=== PATIENT | male | born 1990 | race African-American/Black ===

== ENCOUNTER 2016-09-13 19:05 | Emergency (ER) | payer MEDICAID ==
[~2016-09-13] VITALS: Ht 177.8 cm; Wt 82.6 kg
[2016-09-13 19:20] VITALS: BP 128/78
== END 2016-09-14 02:18 | disposition left against medical advice (07) ==
LOC: ER 19:06
DX: R53.1 Weakness (principal); R19.7 Diarrhea, unspecified; Z53.21 Procedure and treatment not carried out due to patient leaving prior to being seen by health care provider

== ENCOUNTER 2016-09-14 14:40 | Emergency (ER) | payer MEDICAID ==
[~2016-09-14] VITALS: Ht 177.8 cm; Wt 82.6 kg
[2016-09-14] MEDS ORDERED: SODIUM CHLORIDE 0.9% 1,000 ML IV ONE (17:09)
[2016-09-14 17:47] LABS: Urine Bilirubin Negative (Negative); Urine Blood Negative /uL (Negative); Urine Glucose Normal (Normal); Urine Ketone Negative (Negative); Urine Nitrite Negative (Negative); Urine RBC <1 /hpf (0 - 3); Urine Urobilinogen Normal (Negative)
[2016-09-14 17:50] LABS: Urine Color Straw (Yellow)
[2016-09-14 17:53] LABS: Basophils # (auto) 0 uL; Basophils % (auto) 0.6 % (0.0-2.0); Eosinophils # (auto) 0.1 uL; Eosinophils % (auto) 1.3 % (0.0-7.0); Hematocrit 48.2 % (41.0-53.0); Hemoglobin 16.2 g/dL (13.5-17.5); Lymphocytes % (auto) 37.3 % (10.0-50.0); Mean Corpuscular Hemoglobin 30.1 pg (28.0-32.0); Mean Corpuscular Hgb Conc. 33.6 g/dL (32.0-36.0); Mean Corpuscular Volume 89.5 fL (80.0-100.0); Mean Platelet Volume 7.9 fL (7.4-10.4); Monocytes # (auto) 0.5 uL; Monocytes % (auto) 9.5 % (0.0-12.0); Neutrophils # (auto) 2.8 uL; Neutrophils % (auto) 51.3 % (37.0-80.0); Platelet Count (auto) 225 10^3/uL (140-450); Red Cell Distribution Width 13.4 % (11.6-16.0); White Blood Cell 5.4 10^3/uL (4.4-10.8)
[2016-09-14 18:30] VITALS: BP 149/90
[2016-09-14 18:38] LABS: Albumin 4.3 g/dL (3.4-5.0); BUN/Creatinine Ratio 12.4; Bilirubin, Total 0.5 mg/dL (0.2-1.0); Magnesium 2.5 mg/dL (1.6-2.6); Total Protein 7.7 g/dL (6.4-8.2)
== END 2016-09-14 19:30 | disposition home or self-care (01) ==
LOC: ER 14:40
DX: R53.1 Weakness (principal); F17.210 Nicotine dependence, cigarettes, uncomplicated
CPT/HCPCS: 36415; 80053; 81001; 83735; 85025; 94761; 96360; 99285; J7030

== ENCOUNTER 2018-03-30 10:42 | Emergency (ER) | payer MEDICAID ==
[~2018-03-30] VITALS: Ht 177.8 cm; Wt 83.9 kg
[2018-03-30 11:19] VITALS: BP 149/89
[2018-03-30] MEDS ORDERED: ACETAMINOPHEN 325 MG TAB PO ONE (11:30)
[2018-03-30] MEDS ORDERED: IBUPROFEN 800 MG TAB PO ONE (16:15)
== END 2018-03-30 16:44 | disposition home or self-care (01) ==
LOC: ER 10:42
DX: J40 Bronchitis, not specified as acute or chronic (principal); F17.210 Nicotine dependence, cigarettes, uncomplicated

== ENCOUNTER 2019-10-19 16:55 | Emergency (ER) | payer MEDICAID ==
[~2019-10-19] VITALS: Ht 177.8 cm; Wt 89.4 kg
[2019-10-19 17:15] VITALS: BP 135/72
== END 2019-10-19 20:25 | disposition left against medical advice (07) ==
LOC: ER 16:55
DX: R06.02 Shortness of breath (principal); R53.1 Weakness; Z53.21 Procedure and treatment not carried out due to patient leaving prior to being seen by health care provider

== ENCOUNTER 2020-12-27 07:53 | Emergency (ER) | payer MEDICAID ==
[~2020-12-27] VITALS: Ht 177.8 cm; Wt 78.9 kg
[2020-12-27 08:13] VITALS: BP 123/83
== END 2020-12-27 09:07 | disposition home or self-care (01) ==
LOC: ER 07:53
DX: J20.9 Acute bronchitis, unspecified (principal); F17.210 Nicotine dependence, cigarettes, uncomplicated; F41.9 Anxiety disorder, unspecified; Z86.16 Personal history of COVID-19
CPT/HCPCS: 71046

== ENCOUNTER 2021-01-05 09:47 | Emergency (ER) | payer MEDICAID ==
[~2021-01-05] VITALS: Ht 180.3 cm; Wt 79.4 kg
[2021-01-05 10:39] VITALS: BP 133/87
== END 2021-01-05 10:45 | disposition home or self-care (01) ==
LOC: ER 09:47
DX: F41.1 Generalized anxiety disorder (principal); R94.31 Abnormal electrocardiogram [ECG] [EKG]; F17.210 Nicotine dependence, cigarettes, uncomplicated; Z88.0 Allergy status to penicillin
CPT/HCPCS: 93005

== ENCOUNTER 2024-04-30 16:16 | Emergency (ER) | payer MEDICAID ==
[~2024-04-30] VITALS: Ht 180.3 cm; Wt 76.3 kg
--- NOTE | 2024-04-30 16:26 | ECG ---
[facility] Test Date: 2024-04-30 Test Time: 16:23:14 Pat Name: SOFIE SAEZ Department: er Room: Gender: M [employer]: amol : 1990 Requested By: SHANICE العلي Order Number: [id number] Reading MD: Yony Nayak Measurements Intervals [place] Rate: 70 P: 35 [place]: 151 QRS: 56 QRSD: 114 T: 60 QT: 366 QTc: 395 Interpretive Statements Sinus rhythm Incomplete right bundle branch block ST elevation suggests acute pericarditis Baseline wander in lead(s) V6 Electronically Signed On 05-04-2024 8:49:03 PST by Yony Nayak Please click the below link to view image of tracing.
--- NOTE | 2024-04-30 16:47 | DVH ---
EXAM: XR Chest, 1 View CLINICAL INDICATION: chest pain TECHNIQUE: Frontal view of the chest. COMPARISON: None FINDINGS: LUNGS AND PLEURAL SPACES: Unremarkable. No consolidation. No pneumothorax. HEART: Unremarkable. No cardiomegaly. MEDIASTINUM: Unremarkable. Normal mediastinal contour. BONES/JOINTS: Unremarkable. No acute fracture. OTHER FINDINGS: . . IMPRESSION: No acute cardiopulmonary process.
--- NOTE | 2024-04-30 16:58 | ED.PDOC ---
HPI Comments 33y M who presents to the ED for chief complaint of chest pain. Pt states he has been having chest pain for the past 4-5 days. Pt states the pain is located by the L side of his chest, rating the pain 3/10, sharp in nature, intermittent, non-radiating, with no associated exacerbating or relieving factors. Pt otherwise denies any associated shortness of breath, fever, cough, chills, or diaphoresis. Pt has only cardiac history of pericardiums from prior COVID infection but denies any past history. Pt otherwise denies any other symptoms at this time. Chief Complaint: Chest Pain Time Seen by MD: 16:55 Primary Care Provider: ? Reviewed Notes: Nurses Notes Allergies: Coded Allergies: Penicillins (Verified Allergy, Unknown, 01/05/21) Uncoded Allergies: PENICILLIN (Allergy, Unknown, 03/30/18) Information Source: Patient Mode of Arrival: Ambulatory Brought in by: self Past Medical History PAST MEDICAL HISTORY: Anxiety Surgical History: Denies all surgeries Family History Family History: Reviewed,noncontributory to illness Social History Smoker: Cigarettes Alcohol: Occasionally Drugs: Denies Drug Use Lives In: Home Constitutional: denies: chills, diaphoresis, fatigue, fever, malaise, sweats, w eakness, others EENTM: denies: blurred vision, double vision, ear bleeding, ear discharge, ear drainage, ear pain, ear ringing, eye pain, eye redness, hearing loss, mouth pain, mouth swelling, nasal discharge, nose bleeding, nose congestion, nose pain, photophobia, tearing, throat pain, throat swelling, voice changes, others Respiratory: denies: cough, hemoptysis, orthopnea, SOB at rest, shortness of breath, SOB with excertion, stridor, wheezing, others Cardiovascular: reports: chest pain; denies: dizzy spells, diaphoresis, Dyspnea on exertion, edema, irregular heart beat, left arm pain, lightheadedness, palpitations, PND, syncope, others Gastrointestinal: denies: abdomen distended, abdominal pain, blood streaked bowels, constipated, diarrhea, dysphagia, difficulty swallowing, hematemesis, melena, nausea, poor appetite, poor fluid intake, rectal bleeding, rectal pain, vomiting, others Genitourinary: denies: burning, dysuria, flank pain, frequency, hematuria, incontinence, penile discharge, penile sore, pain, testicle pain, testicle swelling, urgency, others Neurological: denies: dizziness, fainting, headache, left sided numbness, left sided weakness, numbness, paresthesia, pre-existing deficit, right sided numbness, right sided weakness, seizure, speech problems, tingling, tremors, weakness, others Musculoskeletal: denies: back pain, gout, joint pain, joint swelling, muscle pain, muscle stiffness, neck pain, others Integumetry: denies: bruises, change in color, change in hair/nails, dryness, laceration, lesions, lumps, rash, wounds, others Allergic/Immunocompromised: denies: Difficulty Healing, Frequent Infections, Hives, Itching, others Hematologic/Lymphatic: denies: anemia, blood clots, easy bleeding, easy bruising, swollen glands, others Endocrine: denies: excessive hunger, excessive sweating, excessive thirst, excessive urination, flushing, intolerance to cold, intolerance to heat, unexplained weight gain, unexplained weight loss, others Psychiatric: denies: anxiety, bipolar disorder, depression, hopeless, panic disorder, schizophrenia, sleepless, suicidal, others All Other Systems: Reviewed and Negative Physical Exam General Appearance: No Apparent Distress, Normal HEENT: Normal ENT Inspection, Pharynx Normal, TMs Normal Neck: Full Range of Motion, Non-Tender, Normal, Normal Inspection Respiratory: Chest Non-Tender, Lungs Clear, No Accessory Muscle Use, No Respi ratory Distress, Normal Breath Sounds Cardiovascular: No Edema, No JVD, No Murmur, No Gallop, Normal Peripheral Pulses, Regular Rate/Rhythm Breast Exam: Deferred Gastrointestinal: No Organomegaly, Non Tender, No Pulsatile Mass, Normal Bowel Sounds, Soft Genitalia: Deferred Pelvic: Deferred Rectal: Deferred Extremities: No calf tenderness, Normal capillary refill, Normal inspection, Normal range of motion, Non-tender, No pedal edema Musculoskeletal : Apperance: Normal Neurologic: Alert, ui designer II-XII nml as Tested, No Motor Deficits, Normal Affect, Normal Mood, No Sensory Deficits Cerebellar Function: Normal Reflexes: Normal Skin: Dry, Normal Color, Warm Lymphatic: No Adenopathy Was a procedure done? Was a procedure done?: No CP Differential Dx Differential Diagnosis: Angina, Anxiety / Panic Attack Differential Diagnosis: Chest Wall Pain, Costochondritis, Pericarditis X-Ray, Labs, Meds, VS Vital Signs Date Time Temp Pulse Resp B/P (MAP) Pulse Ox O2 Delivery O2 Flow Rate FiO2 04/30/24 17:40 98.5 75 16 142/74 (96) 95 98.5 04/30/24 17:09 68 04/30/24 16:23 70 04/30/24 16:18 98.5 68 16 130/81 (97) 96 Lab Test 04/30/24 17:45 04/30/24 16:42 04/30/24 16:26 Range/Units Troponin I High Sensitivity < 3 L < 3 L </=54 ng/L White Blood Count 5.2 4.4-10.8 10^3/uL Red Blood Count 5.23 4.5-5.90 10^6/uL Hemoglobin 15.8 13.5-17.5 g/dL Hematocrit 46.7 41.0-53.0 % Mean Corpuscular Volume 89.3 80.0-100.0 fL Mean Corpuscular Hemoglobin 30.2 28.0-32.0 pg Mean Corpuscular Hemoglobin Concent 33.9 32.0-36.0 g/dL Red Cell Distribution Width 13.2 11.8-14.3 % Platelet Count 201 140-450 10^3/uL Mean Platelet Volume 8.3 6.9-10.8 fL Neutrophils (%) (Auto) 37.7 37.0-80.0 % Lymphocytes (%) (Auto) 48.4 10.0-50.0 % Monocytes (%) (Auto) 8.6 0.0-12.0 % Eosinophils (%) (Auto) 4.2 0.0-7.0 % Basophils (%) (Auto) 1.1 0.0-2.0 % Neutrophils # (Auto) 2.0 1.6-8.6 10 ^3/uL Lymphocytes # (Auto) 2.5 0.4-5.4 10 ^3/uL Monocytes # (Auto) 0.4 0-1.3 10 ^3/uL Eosinophils # (Auto) 0.2 0-0.8 10 ^3/uL Basophils # (Auto) 0.1 0-0.2 10 ^3/uL Nucleated Red Blood Cells 0.2 % Sodium Level 140 136-145 mmol/L Potassium Level 4.3 3.5-5.1 mmol/L Chloride Level 103 98-107 mmol/L Carbon Dioxide Level 30 20-31 mmol/L Anion Gap 7 5-15 Blood Urea Nitrogen 13 9-23 mg/dL Creatinine 1.22 0.700-1.30 mg/dL Glomerular Filtration Rate Calc 80 >90 mL/min BUN/Creatinine Ratio 10.7 10.0-20.0 Serum Glucose 99 74-106 mg/dL Calcium Level 10.2 8.7-10.4 mg/dL Total Bilirubin 0.5 0.2-1.0 mg/dL Aspartate Amino Transferase (AST) 25 13-40 U/L Alanine Aminotransferase (ALT) 13 7-40 U/L Alkaline Phosphatase 66 46-116 U/L Total Protein 7.1 5.7-8.2 g/dL Albumin 4.9 H 3.2-4.8 g/dL Urine Color Yellow Yellow Urine Clarity Clear Clear Urine pH 6.5 5.0-9.0 Urine Specific Burns 1.029 1.001-1.035 Urine Protein Trace H Negative Urine Ketones Trace Negative Urine Blood Negative Negative /uL Urine Nitrite Negative Negative Urine Bilirubin Negative Negative Urine Urobilinogen 3 H Negative mg/dL Urine Leukocyte Esterase Negative Negative /uL Urine RBC 12 0 - 3 /hpf Urine Microscopic WBC 1 0-3 /HPF Urine Squamous Epithelial Cells None seen <5 /hpf Urine Bacteria Few H None Seen /hpf Urine Sperm Present None Seen /hpf Urine Glucose Normal Normal mg/dL [place] [id number] DIAGNOSTIC IMAGING Diagnostic Imaging Report : [id number] Signed PATIENT: SOFIE SAEZ ACCT: [id number] UNIT: [id number] : 1990 LOC: ER ROOM / BED: / AGE / SEX: 33 / M ADM STATUS: REG ER SERVICE [id number] ORDERING PHYSICIAN: SHANICE العلي MD PROCEDURE(s): CXR1 - CHEST XRAY 1 VIEW REASON: chest pain ORDER NUMBER(s): [id number], ACCESSION NUMBER(s): [id number] EXAM: XR Chest, 1 View CLINICAL INDICATION: chest pain TECHNIQUE: Frontal view of the chest. COMPARISON: None FINDINGS: LUNGS AND PLEURAL SPACES: Unremarkable. No consolidation. No pneumothorax. HEART: Unremarkable. No cardiomegaly. MEDIASTINUM: Unremarkable. Normal mediastinal contour. BONES/JOINTS: Unremarkable. No acute fracture. OTHER FINDINGS: . . IMPRESSION: No acute cardiopulmonary process. ATED BY: ANGELITO BAUMAN MD DICTATED DATE/TIME: 04/30/241644 SIGNED BY: ANGELITO BAUMAN MD SIGNED DATE/TIME: 04/30/241644 CC: Time of 1ST Reevaluation: 17:25 Reevaluation 1ST: Unchanged Time of 2ND Reevaluation: 18:36 Reevaluation 2ND: Improved Patient Education/Counseling: Diagnosis, Treatment Family Education/Counseling: No Family Present Departure 1 Departure Time of Disposition: 18:36 Impression: Primary Impression: Chest pain Disposition: 01 HOME / SELF CARE / HOMELESS Condition: Stable Discharged With: Self Critical Care Note Critical Care Time?: No Stability Stability form required: No Heart Score Heart Score: Heart Score Response (Comments) Value History Slightly Suspicious 0 EKG Normal 0 Age <45 0 Risk Factors No known risk factors 0 Troponin Normal limit 0 Total 0 I personally scribed for SHANICE العلي MD ([email or web address]) on 04/30/24 at 16:58. Electronically submitted by Jeyson FERNANDEZ). SHANICE العلي MD Apr 30, 2024 16:58
[2024-04-30 17:04] LABS: Basophils # (auto) 0.1 10 ^3/uL (0-0.2); Basophils % (auto) 1.1 % (0.0-2.0); Eosinophils # (auto) 0.2 10 ^3/uL (0-0.8); Eosinophils % (auto) 4.2 % (0.0-7.0); Hematocrit 46.7 % (41.0-53.0); Hemoglobin 15.8 g/dL (13.5-17.5); Lymphocytes # (auto) 2.5 10 ^3/uL (0.4-5.4); Lymphocytes % (auto) 48.4 % (10.0-50.0); Mean Corpuscular Hemoglobin 30.2 pg (28.0-32.0); Mean Corpuscular Hgb Conc. 33.9 g/dL (32.0-36.0); Mean Corpuscular Volume 89.3 fL (80.0-100.0); Monocytes # (auto) 0.4 10 ^3/uL (0-1.3); Monocytes % (auto) 8.6 % (0.0-12.0); Neutrophils % (auto) 37.7 % (37.0-80.0); Nucleated Red Blood Cells % 0.2 %; Platelet Count (auto) 201 10^3/uL (140-450); Red Blood Cells 5.23 10^6/uL (4.5-5.90); Red Cell Distribution Width 13.2 % (11.8-14.3); White Blood Cell 5.2 10^3/uL (4.4-10.8)
[2024-04-30 17:19] LABS: Alanine Aminotransferase 13 U/L (7-40); Alkaline Phosphatase 66 U/L (46-116); Anion Gap 7 (5-15); Aspartate Aminotransferase 25 U/L (13-40); BUN/Creatinine Ratio 10.7 (10.0-20.0); Bilirubin, Total 0.5 mg/dL (0.2-1.0); Blood Urea Nitrogen 13 mg/dL (9-23); Calcium 10.2 mg/dL (8.7-10.4); Carbon Dioxide 30 mmol/L (20-31); Chloride 103 mmol/L (98-107); Glucose 99 mg/dL (74-106); Potassium 4.3 mmol/L (3.5-5.1); Sodium 140 mmol/L (136-145); Total Protein 7.1 g/dL (5.7-8.2)
[2024-04-30 17:23] LABS: Albumin 4.9 g/dL (3.2-4.8)
--- NOTE | 2024-04-30 18:17 | ECG ---
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
[2024-04-30 18:24] LABS: Urine Bacteria FEW /hpf (None Seen); Urine Blood Negative /uL (Negative); Urine Clarity Clear (Clear); Urine Color Yellow (Yellow); Urine Protein, UAD TRACE (Negative); Urine Specific Gravity 1.029 (1.001-1.035); Urine Sperm PRESENT /hpf (None Seen); Urine Squamous Epithelial Cell None Seen /hpf (<5); Urine Urobilinogen 3 mg/dL (Negative); Urine WBC 1 /HPF (0-3); Urine pH 6.5 (5.0-9.0)
[2024-04-30 18:48] VITALS: BP 129/74; PULSE 64; RESP 18; TEMP 97.9; O2SAT 97
== END 2024-04-30 18:48 | disposition home or self-care (01) ==
LOC: ER 16:16
DX: R07.89 Other chest pain (principal); F17.210 Nicotine dependence, cigarettes, uncomplicated; F41.9 Anxiety disorder, unspecified; Z88.0 Allergy status to penicillin
CPT/HCPCS: 36415; 71045; 80053; 81001; 84484; 85025; 93005